=== PATIENT | female | born 1985 | race Caucasian/White ===

== ENCOUNTER 2018-06-16 08:34 | Emergency (ER) | payer OTHER ==
[~2018-06-16] VITALS: Ht 154.9 cm; Wt 95.3 kg
[2018-06-16 08:43] VITALS: BP 113/77
--- NOTE | 2018-06-16 08:48 | NUR ---
PATIENT AMB. TO BED # 7 WITH SON AND NURSE
--- NOTE | 2018-06-16 08:50 | NUR ---
32Y/F BIB FRIEND C/O LEFT ARM PAIN/ NUMBNESS. PT STATES " SHE HAS LEFT ARM PAIN X 3 DAYS, INTERMITTENT PAIN/ NUMBNESS THROUGH OUT THE DAY. FULL ROM AT THIS TIME, PT DENIES INJURY. 5/10 PAIN SCALE. BED DOWN. BEDRAIL UP X 1. ER MD AWARE AND NOTIFIED OF PT STATUS. HX: HYPOTHYROIDSM RX; SYNTHROID
--- NOTE | 2018-06-16 09:00 | NUR ---
Patient being evaluated by physician at bedside.
[2018-06-16] MEDS ORDERED: KETOROLAC 60 MG/2 ML VIAL IM ONE (09:05)
[2018-06-16 09:29] VITALS: BP 128/90
== END 2018-06-16 09:29 | disposition home or self-care (01) ==
LOC: MED 08:34
DX: M79.602 Pain in left arm (principal)
CPT/HCPCS: 96372; 99283; J1885

== ENCOUNTER 2021-12-26 01:29 | Emergency (ER) | payer OTHER ==
[~2021-12-26] VITALS: Ht 154.9 cm; Wt 111.1 kg
[2021-12-26 01:33] VITALS: BP 106/60
--- NOTE | 2021-12-26 02:12 | NUR ---
36 Y/O FEMALE BIBS, C/P OF VAGINAL SPOTTING S/P INTERCOURSE <1HR. PT STATES DURING INTERCOURSE SHE FELT A CRAMP AND NOTICED BLOOD SPOTTING; PT IS NOT GOING THROUGH PADS. DENIES N/V/D; SKIN IS PINK/WARM/DRY; AAOX4 WITH EVEN AND STEADY GAIT; PT DENIES ANY FEVER, CP, SOB, OR COUGH AT THIS TIME; PATIENT STATES PAIN OF 0/10 AT THIS TIME; VSS; PATIENT POSITIONED FOR COMFORT; HOB ELEVATED; BEDRAILS UP X2; BED DOWN. ER MD MADE AWARE OF PT STATUS. HX: HYPOTHYROID, CURRENT UTI NKA MEDS: ABX, LEVOTHYROXINE, FOLIC ACID
[2021-12-26 02:41] LABS: BASOPHILS # (AUTO) 0.1 K/uL (0.00-0.22); BASOPHILS % (AUTO) 0.6 % (0.0-2.0); EOSINOPHILS # (AUTO) 0.1 K/uL (0-0.4); EOSINOPHILS % (AUTO) 0.8 % (0.0-4.0); HEMOGLOBIN 11.7 g/dL (12.0-16.0); LYMPHOCYTES # (AUTO) 3.3 K/uL (2.5-16.5); LYMPHOCYTES % (AUTO) 34.8 % (20.5-51.1); MEAN CORPUSCULAR HEMOGLOBIN 27 pg (27-31); MEAN CORPUSCULAR HGB CONC 33 g/dL (33-37); MEAN CORPUSCULAR VOLUME 79.8 fL (80-94); MONOCYTES # (AUTO) 0.6 K/uL (0.8-1.0); MONOCYTES % (AUTO) 6.4 % (1.7-9.3); NEUTROPHILS # (AUTO) 5.4 K/uL (1.8-7.7); NEUTROPHILS % (AUTO) 57.4 % (42.2-75.2); PLATELET COUNT (AUTO) 283 K/uL (140-450); RED BLOOD CELL COUNT(AUTO) 4.38 MIL/uL (4.20-5.40); RED CELL DISTRIBUTION WIDTH 16.5 % (11.6-13.7); WHITE BLOOD COUNT (AUTO) 9.4 K/uL (4.8-10.8)
[2021-12-26 02:42] LABS: APPEARANCE,URINE CLEAR (CLEAR); BILIRUBIN,URINE NEGATIVE (NEGATIVE); BLOOD, URINE 3+ (NEGATIVE); COLOR,URINE YELLOW (YELLOW); LEUKOCYTE ESTERASE ,URINE TRACE (NEGATIVE); NITRITE, URINE NEGATIVE (NEGATIVE); UGLUCOSE NEGATIVE (NEGATIVE)
[2021-12-26 02:54] LABS: RBC,URINE TOO NUMEROUS TO COUN /HPF (0-5); WBC,URINE 0-5 /HPF (0-5)
--- NOTE | 2021-12-26 02:54 | NUR ---
PT IS , NO EXPECTED COMPLICATIONS. PT HAS CARE.
[2021-12-26 03:02] LABS: ALBUMIN 2.7 g/dL (3.4-5.0); ANION GAP 12.7 (8-16); CARBON DIOXIDE 24.4 mmol/L (21-32); CREATININE 0.5 mg/dL (0.6-1.3); POTASSIUM 4.1 mmol/L (3.5-5.1); TOTAL BILIRUBIN 0.4 mg/dL (0.0-1.0)
[2021-12-26 06:26] VITALS: BP 119/65
--- NOTE | 2021-12-26 06:28 | NUR ---
Patient discharged with v/s stable. Written and verbal after care instructions given and explained. Patient verbalized understanding. Ambulatory with steady gait. All questions addressed prior to discharge. Advised to follow up with PMD. VSS, A/OX4, AMBULATORY, UNLABORED BREATHING, AND CALM DEMEANOR.
== END 2021-12-26 06:25 | disposition home or self-care (01) ==
LOC: MED 01:29
DX: O20.0 Threatened abortion (principal); O99.281 Endocrine, nutritional and metabolic diseases complicating pregnancy, first trimester; E03.9 Hypothyroidism, unspecified; Z3A.11 11 weeks gestation of pregnancy
CPT/HCPCS: 36415; 76801; 80053; 81001; 84702; 85025; 99284; Q0092

== ENCOUNTER 2022-05-21 10:24 | Observation (INO) | payer OTHER ==
[~2022-05-21] VITALS: Ht 154.9 cm; Wt 108.9 kg
[2022-05-21 11:12] VITALS: BP 119/61
[2022-05-21 12:18] LABS: BASOPHILS % (AUTO) 0.4 % (0.0-2.0); EOSINOPHILS # (AUTO) 0.1 K/uL (0-0.4); EOSINOPHILS % (AUTO) 0.5 % (0.0-4.0); HEMOGLOBIN 11.3 g/dL (12.0-16.0); LYMPHOCYTES % (AUTO) 25.5 % (20.5-51.1); MEAN CORPUSCULAR HEMOGLOBIN 28 pg (27-31); MEAN CORPUSCULAR HGB CONC 33 g/dL (33-37); MEAN CORPUSCULAR VOLUME 84.5 fL (80-94); MONOCYTES # (AUTO) 0.5 K/uL (0.8-1.0); MONOCYTES % (AUTO) 4.2 % (1.7-9.3); NEUTROPHILS # (AUTO) 8.1 K/uL (1.8-7.7); NEUTROPHILS % (AUTO) 69.4 % (42.2-75.2); PLATELET COUNT (AUTO) 238 K/uL (140-450); RED BLOOD CELL COUNT(AUTO) 4.02 MIL/uL (4.20-5.40); RED CELL DISTRIBUTION WIDTH 16.3 % (11.6-13.7); WHITE BLOOD COUNT (AUTO) 11.7 K/uL (4.8-10.8)
[2022-05-21 12:38] LABS: PROTHROMBIN TIME 10.3 secs (10.8-13.4)
[2022-05-21 12:54] LABS: APPEARANCE,URINE CLEAR (CLEAR); BILIRUBIN,URINE NEGATIVE (NEGATIVE); BLOOD, URINE NEGATIVE (NEGATIVE); COLOR,URINE YELLOW (YELLOW); LEUKOCYTE ESTERASE ,URINE TRACE (NEGATIVE); NITRITE, URINE NEGATIVE (NEGATIVE); UGLUCOSE NEGATIVE (NEGATIVE)
[2022-05-21 13:34] LABS: ALBUMIN 2.2 g/dL (3.4-5.0); ANION GAP 16.9 (8-16); CARBON DIOXIDE 24.5 mmol/L (21-32); CREATININE 0.5 mg/dL (0.6-1.3); POTASSIUM 4.4 mmol/L (3.5-5.1); TOTAL BILIRUBIN 0.4 mg/dL (0.0-1.0); URIC ACID 2.1 mg/dL (2.6-7.2)
[2022-05-21 13:57] LABS: URINE TOTAL PROTEIN 11.9 mg/dL (0-12)
== END 2022-05-21 14:25 | disposition home or self-care (01) ==
LOC: MLD 10:24
PROVIDERS: ADMIT Obstetrics & Gynecology; ATTEND Obstetrics & Gynecology
DX: O23.43 Unspecified infection of urinary tract in pregnancy, third trimester (principal); O22.43 Hemorrhoids in pregnancy, third trimester; Z3A.32 32 weeks gestation of pregnancy
CPT/HCPCS: 36415; 76819; 80053; 81003; 82570; 84550; 85025; 85384; 85610; 85730; G0378; Q0092

== ENCOUNTER 2022-06-29 19:49 | Observation (INO) | payer OTHER ==
[~2022-06-29] VITALS: Ht 154.9 cm; Wt 113.4 kg
[2022-06-29] MEDS ORDERED: FERR325E14 PO (20:25)
[2022-06-29] MEDS ORDERED: SYN.075 PO (20:25)
[2022-06-29] MEDS ORDERED: PRETAB PO (20:25)
[2022-06-29] MEDS ORDERED: OSC500 PO (20:25)
[2022-06-29 20:26] VITALS: BP 134/70
== END 2022-06-29 21:30 | disposition home or self-care (01) ==
LOC: MLD 19:49
PROVIDERS: ADMIT Obstetrics & Gynecology; ATTEND Obstetrics & Gynecology
DX: O36.8130 Decreased fetal movements, third trimester, not applicable or unspecified (principal); Z3A.38 38 weeks gestation of pregnancy
CPT/HCPCS: 76819; G0378; Q0092

== ENCOUNTER 2022-07-05 07:09 | Inpatient (IN) | payer OTHER ==
[~2022-07-05] VITALS: Ht 154.9 cm; Wt 113.4 kg
[~2022-07-05 07:09] MED LIST: FERR325E14 PO; OSC500 PO; PRETAB PO; SYN.075 PO
[2022-07-05] MEDS ORDERED: LACTATED RINGERS 500 ML IV SCH (08:00)
[2022-07-05] MEDS ORDERED: ceFAZolin Sod. 2,000 MG in DEXTROSE 5% 100 ML IV ONE (08:00)
[2022-07-05] MEDS ORDERED: LACTATED RINGERS 1,000 ML IV SCH (08:00)
[2022-07-05 09:04] LABS: BASOPHILS % (AUTO) 0.3 % (0.0-2.0); EOSINOPHILS % (AUTO) 0.4 % (0.0-4.0); HEMATOCRIT 35.2 % (36-48); LYMPHOCYTES # (AUTO) 2.6 K/uL (2.5-16.5); LYMPHOCYTES % (AUTO) 27.5 % (20.5-51.1); MEAN CORPUSCULAR HEMOGLOBIN 29 pg (27-31); MEAN CORPUSCULAR HGB CONC 34 g/dL (33-37); MEAN CORPUSCULAR VOLUME 84.1 fL (80-94); MONOCYTES # (AUTO) 0.4 K/uL (0.8-1.0); MONOCYTES % (AUTO) 4.4 % (1.7-9.3); NEUTROPHILS # (AUTO) 6.4 K/uL (1.8-7.7); NEUTROPHILS % (AUTO) 67.4 % (42.2-75.2); PLATELET COUNT (AUTO) 229 K/uL (140-450); RED BLOOD CELL COUNT(AUTO) 4.19 MIL/uL (4.20-5.40); RED CELL DISTRIBUTION WIDTH 16.9 % (11.6-13.7); WHITE BLOOD COUNT (AUTO) 9.5 K/uL (4.8-10.8)
[2022-07-05 09:10] LABS: APPEARANCE,URINE CLEAR (CLEAR); BILIRUBIN,URINE NEGATIVE (NEGATIVE); BLOOD, URINE NEGATIVE (NEGATIVE); COLOR,URINE YELLOW (YELLOW); LEUKOCYTE ESTERASE ,URINE 2+ (NEGATIVE); NITRITE, URINE NEGATIVE (NEGATIVE); UGLUCOSE NEGATIVE (NEGATIVE)
[2022-07-05 09:24] LABS: RBC,URINE 0-5 /HPF (0-5)
[2022-07-05 09:37] LABS: PROTHROMBIN TIME 9.3 secs (10.8-13.4)
[2022-07-05 09:38] LABS: ALBUMIN 2.1 g/dL (3.4-5.0); CARBON DIOXIDE 21.4 mmol/L (21-32); CREATININE 0.6 mg/dL (0.6-1.3); TOTAL BILIRUBIN 0.3 mg/dL (0.0-1.0)
--- NOTE | 2022-07-05 10:24 | NUR ---
PATIENT HAS BEEN SCREENED AND CATEGORIZED LOW NUTRITION RISK. PATIENT WILL BE SEEN WITHIN 7 DAYS OF ADMISSION. 07/12/22 REVIEWED BY DRISS LANG[address]ON RD
[2022-07-05 10:28] LABS: ANION GAP 14.8 (8-16); POTASSIUM 4.2 mmol/L (3.5-5.1)
[2022-07-05 10:39] VITALS: BP 118/74
[2022-07-05] MEDS ORDERED: ceFAZolin 2,000 MG VIAL ONE (11:02)
[2022-07-05] MEDS ORDERED: MORPHINE PRES FREE 10 MG/10 ML AMP IV ONE (11:05)
[2022-07-05] MEDS ORDERED: KETOROLAC 30 MG/ML VIAL IVP PRN ×2 (11:30→18:40)
[2022-07-05] MEDS ORDERED: ONDANSETRON 4 MG/2 ML VIAL IVP PRN (11:30)
[2022-07-05] MEDS ORDERED: diphenhydrAMINE 50 MG/ML VIAL IVP PRN (11:30)
[2022-07-05] MEDS ORDERED: NALOXONE 0.4 MG/ML VIAL IVP PRN (11:30)
[2022-07-05] MEDS ORDERED: OXYTOCIN 20 UNITS/LR PREMIX 1,000 ML IV ONE ×2 (11:45→18:45)
[2022-07-05] MEDS: OXYTOCIN 20 UNITS in LACTATED RINGERS 1,000 ML IV SCH ×3 (12:58→18:56)
[2022-07-05] MEDS ORDERED: METHYLERGONOVINE 0.2 MG/ML AMP ONE (13:23)
[2022-07-05] MEDS ORDERED: KETOROLAC 60 MG/2 ML VIAL IM ONE (15:10)
[2022-07-05] MEDS ORDERED: MEASLES, MUMPS, AND RUBELLA 1 VIAL SQVAC ONE (18:40)
[2022-07-05] MEDS ORDERED: METHYLERGONOVINE 0.2 MG/ML AMP IM PRN (18:40)
[2022-07-05] MEDS ORDERED: oxyCODONE/APAP 5/325 MG 1 TAB TAB PO PRN (18:40)
[2022-07-05] MEDS ORDERED: MEASLES, MUMPS, AND RUBELLA 1 VIAL SQVAC PRN (18:50)
[2022-07-06] MEDS ORDERED: OXYTOCIN 20 UNITS/LR PREMIX 1,000 ML IV ONE (02:29)
[2022-07-06] MEDS: OXYTOCIN 20 UNITS in LACTATED RINGERS 1,000 ML IV SCH (02:33)
[2022-07-06 05:40] LABS: BASOPHILS % (AUTO) 0.3 % (0.0-2.0); EOSINOPHILS % (AUTO) 0.1 % (0.0-4.0); HEMATOCRIT 26.1 % (36-48); HEMOGLOBIN 8.8 g/dL (12.0-16.0); LYMPHOCYTES # (AUTO) 1.9 K/uL (2.5-16.5); LYMPHOCYTES % (AUTO) 15.9 % (20.5-51.1); MEAN CORPUSCULAR HEMOGLOBIN 29 pg (27-31); MEAN CORPUSCULAR HGB CONC 34 g/dL (33-37); MONOCYTES # (AUTO) 0.6 K/uL (0.8-1.0); NEUTROPHILS # (AUTO) 9.6 K/uL (1.8-7.7); NEUTROPHILS % (AUTO) 78.7 % (42.2-75.2); PLATELET COUNT (AUTO) 184 K/uL (140-450); RED BLOOD CELL COUNT(AUTO) 3.07 MIL/uL (4.20-5.40); RED CELL DISTRIBUTION WIDTH 16.5 % (11.6-13.7); WHITE BLOOD COUNT (AUTO) 12.1 K/uL (4.8-10.8)
[2022-07-06] MEDS: bisacodyL 5 MG TABEC PO PRN (12:54)
[2022-07-06] MEDS: SIMETHICONE 80 MG TAB.CHEW PO PRN (18:26)
[2022-07-06] MEDS ORDERED: CAMERA MC ONE (19:34)
[2022-07-06] MEDS ORDERED: oxyCODONE/APAP 5/325 MG 1 TAB TAB PO PRN (19:40)
[2022-07-06] MEDS: IBUPROFEN 800 MG TAB PO PRN (20:04)
[2022-07-07] MEDS: SIMETHICONE 80 MG TAB.CHEW PO PRN (07:06)
[2022-07-07] MEDS: IBUPROFEN 800 MG TAB PO PRN (07:06)
[2022-07-07] MEDS: bisacodyL 5 MG TABEC PO PRN (07:53)
== END 2022-07-07 13:30 | disposition home or self-care (01) | DRG 540 ==
LOC: MLD 07:09 → MFCC 13:21
PROVIDERS: ADMIT Obstetrics & Gynecology; ATTEND Obstetrics & Gynecology
PROC: 10D00Z1 Extraction of Products of Conception, Low, Open Approach (ICD-10-PCS; principal; 2022-07-05 11:00)
DX: O34.211 Maternal care for low transverse scar from previous cesarean delivery (principal); O99.214 Obesity complicating childbirth; Z20.822 Contact with and (suspected) exposure to COVID-19; Z37.0 Single live birth; Z3A.39 39 weeks gestation of pregnancy
CPT/HCPCS: 36415; 80053; 81001; 85025; 85610; 85730; 86592; 86886; 86900; 86901; 87081; 87086; J1885; J2210; J2270; J2590

== ENCOUNTER 2024-02-21 19:48 | Emergency (ER) | payer OTHER ==
[~2024-02-21] VITALS: Ht 149.9 cm; Wt 96.2 kg
[2024-02-21 20:29] VITALS: BP 152/83; PULSE 102; RESP 18; TEMP 97.9; O2SAT 99
[2024-02-21 21:55] LABS: BASOPHILS % (AUTO) 0.3 % (0.0-2.0); EOSINOPHILS # (AUTO) 0.1 K/uL (0-0.4); HEMATOCRIT 32.3 % (36-48); LYMPHOCYTES # (AUTO) 3.3 K/uL (2.5-16.5); LYMPHOCYTES % (AUTO) 33.8 % (20.5-51.1); MEAN CORPUSCULAR HEMOGLOBIN 28 pg (27-31); MEAN CORPUSCULAR HGB CONC 34 g/dL (33-37); MEAN CORPUSCULAR VOLUME 81.6 fL (80-94); MONOCYTES # (AUTO) 0.5 K/uL (0.8-1.0); MONOCYTES % (AUTO) 4.8 % (1.7-9.3); NEUTROPHILS # (AUTO) 5.9 K/uL (1.8-7.7); NEUTROPHILS % (AUTO) 60.1 % (42.2-75.2); PLATELET COUNT (AUTO) 273 K/uL (140-450); RED BLOOD CELL COUNT(AUTO) 3.95 MIL/uL (4.20-5.40); RED CELL DISTRIBUTION WIDTH 14.4 % (11.6-13.7); WHITE BLOOD COUNT (AUTO) 9.9 K/uL (4.8-10.8)
[2024-02-21 22:01] LABS: APPEARANCE,URINE BLOODY (CLEAR); BILIRUBIN,URINE NEGATIVE (NEGATIVE); BLOOD, URINE 2+ (NEGATIVE); COLOR,URINE RED (YELLOW); NITRITE, URINE POSITIVE (NEGATIVE); PROTEIN,URINE 1+ (NEGATIVE); UGLUCOSE NEGATIVE (NEGATIVE); UROBILINOGEN,URINE 0.2 EU/dL (0.2 - 1)
[2024-02-21 22:02] LABS: LEUKOCYTE ESTERASE ,URINE 1+ (NEGATIVE)
[2024-02-21 22:03] LABS: RBC,URINE 11-20 (MOD) /HPF (0-5)
[2024-02-21 22:04] LABS: BACTERIA,URINE 1+ /HPF (None Seen); MUCUS,URINE None Seen /LPF (None Seen); SQUAMOUS EPITHELIAL CELL,UR 4-10 (MOD) /LPF (0-3 (FEW))
[2024-02-21 22:16] LABS: ALBUMIN 3.1 g/dL (3.4-5.0); ANION GAP 8.6 (8-16); CALCIUM 8.5 mg/dL (8.5-10.1); CARBON DIOXIDE 29.9 mmol/L (21-32); CREATININE 0.9 mg/dL (0.6-1.3); POTASSIUM 3.5 mmol/L (3.5-5.1); TOTAL BILIRUBIN 0.3 mg/dL (0.0-1.0)
[2024-02-22] MEDS ORDERED: MEDR10TA PO (01:00)
[2024-02-22] MEDS ORDERED: METR-435 PO (01:04)
[2024-02-22] MEDS ORDERED: NITR100C7 PO (01:04)
[2024-02-22 01:39] VITALS: BP 152/98; PULSE 94; RESP 18; TEMP 97.9; O2SAT 99
== END 2024-02-22 01:39 | disposition home or self-care (01) ==
LOC: MED 19:48
DX: N76.0 Acute vaginitis (principal); B96.89 Other specified bacterial agents as the cause of diseases classified elsewhere; N39.0 Urinary tract infection, site not specified; N93.9 Abnormal uterine and vaginal bleeding, unspecified; E03.9 Hypothyroidism, unspecified; Z79.899 Other long term (current) drug therapy; Z98.890 Other specified postprocedural states
CPT/HCPCS: 36415; 76856; 80053; 81001; 81025; 84702; 85025; 86886; 86900; 86901; 87086; 87210; 99284